=== PATIENT | female | born 1955 | race African-American/Black ===

== ENCOUNTER 2022-10-10 13:30 | Emergency (ER) | payer OTHER, SELFPAY ==
--- NOTE | ~2022-10-10 | XR_ITS ---
XR foot LT min 3V 10/10/2022 14:17 Indication: Left foot pain after fall Procedure: 4 views left foot Comparison: No prior studies for comparison. Findings: There is a oblique extra-articular fracture of the fifth metatarsal with dorsal medial disp lacement. Osteopenia. Lisfranc joint intact no other fracture is identified. 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 There is a degenerative calcaneal enthesophyte at the plantar surface. Impression: 1: Displaced extra-articular fracture left fifth metatarsal. Reviewed, dictated and finalized at location A. Impression: 1: Displaced extra-articular fracture left fifth metatarsal.
[2022-10-10 13:58] VITALS: BP 105/70; PULSE 80; RESP 18; TEMP 36.4; O2SAT 100
[2022-10-10 14:02] VITALS: BP 105/70; PULSE 80; RESP 18; TEMP 36.4; O2SAT 100
--- NOTE | 2022-10-10 14:23 | ED.LOWEXIN ---
HPI - Extremity Injury (Lower) General Chief Complaint: Extremity Injury, Lower Stated Complaint: lower extremity injury/fall Time Seen by Provider: 10/10/22 13:37 Source: patient and family (daughter ) Mode of arrival: wheelchair Limitations: no limitations History of Present Illness HPI Narrative: 67-year-old female presents [facility] accompanied by her daughter for complaints of pain and swelling to the lateral aspect of her left foot since last night. Patient reports that she is from [place], staying with her daughter when she tripped and fell down 2 steps injuring her left foot. Patient denies loss of conscious, headache, dizziness, blurred vision, nausea or vomiting. Patient reports that she takes prescribed tramadol. Patient reports that she might have hit her head during fall. Patient denies loss of conscious, headache, dizziness or blurred vision. Patient refuses ER evaluation at this time. MD complaint: foot injury Onset (ago): day(s) (1) Injury: Left: foot Severity scale (1-10): 5 Relieving factors: rest Exacerbating factors: weight bearing and movement Context: fall Other symptoms: none Related Data Home Medications Medication Instructions Recorded Confirmed albuterol sulfate 2.5 mg/3 mL mg 10/10/22 (0.083 %) solution for nebulization apixaban 5 mg tablet (Eliquis) mg 10/10/22 budesonide 160 mcg-glycopyr 9 inh inhalation 10/10/22 mcg-formot 4.8 mcg/actuation HFA inhaler (Breztri Aerosphere) folic acid 1 mg tablet 10/10/22 gabapentin 100 mg capsule mg 10/10/22 loratadine 10 mg tablet mg 10/10/22 prednisone 1 mg tablet mg 10/10/22 tramadol 50 mg tablet mg 10/10/22 valsartan 160 mg tablet mg 10/10/22 Allergies Allergy/AdvReac Type Severity Reaction Status Date / Time codeine Allergy Rash Verified 10/10/22 13:59 iodine Allergy Hives Verified 10/10/22 13:59 Penicillins Allergy Swelling Verified 10/10/22 13:59 Review of Systems Constitutional: Constitutional: Denies chills, Denies fatigue, Denies fever(s) and Denies weakness ENT: Denies vertigo and Denies dizziness Cardiovascular: Cardiovascular: Denies chest pain Respiratory: Respiratory: Denies cough, Denies dyspnea and Denies wheezing Gastrointestinal: Gastrointestinal: Denies diarrhea, Denies nausea and Denies vomiting Musculoskeletal: Musculoskeletal: Reports arthralgias and Reports joint swelling Comments: Pain and swelling to the lateral aspect of left foot Integumentary/Breasts: Skin/Breast: Denies rash Neurologic: Denies confusion, Denies vertigo, Denies dizziness, Denies syncope, Denies headache(s), Denies focal weakness, Denies numbness and Denies weakness PMFSH Comments At time of signature, I agree with nursing past medical, surgical, social and family history. There is no relevant family history pertinent to the presenting complaint. Exam Const: General: healthy appearing and no acute distress Nutritional Appearance: well nourished Orientation/consciousness: patient oriented x3 Limitations: no limitations HENMT: Head: normal to inspection Throat: posterior oropharynx normal and uvula midline Eyes: Conjunctivae: conjunctivae normal Pupils: Equal, round and reactive pupils present Direct Ophthalmoscopy: no photophobia Neck: Neck: normal visual inspection Resp: Effort & Inspection: normal respiratory effort and not labored Auscultation: clear to auscultation bilaterally, no crackles, no rales, no rhonchi, no wheezes and breath sounds present Cardio: Rate: regular rate Rhythm: regular rhythm Heart sounds: no murmurs Skin: General skin exam: normal color Rashes: no rashes Wounds: no wounds Neuro: General: patient oriented x3 Cranial nerves: Yes Nystagmus not present Speech: normal speech Extrem: Other: Mild swelling noted to the lateral aspect of left foot. Pulses are within normal limits. No bruising, erythema or open wounds noted Psych: Mental Status: mental status grossly n
--- NOTE | 2022-10-12 17:10 | ED.EXTPRO ---
HPI - Extremity Problem General Chief complaint: Extremity Injury, Lower Stated complaint: lower extremity injury/fall Time Seen by Provider: 10/10/22 13:37 Source: patient and family (daughter ) Mode of arrival: wheelchair Limitations: no limitations History of Present Illness HPI Narrative: Vera is a 67-year-old female patient presenting to the clinic today with complaints of her splint causing her discomfort. She was seen on the 10 of October and was diagnosed with a left 5th displaced metatarsal fracture. Her daughter contacted the orthopedics office and they stated since the patient is not a surgical candidate and is from [place] and is planning to travel back to [place] that she needs to follow up with the orthopedic doctor in [place] for this. Her main concern today is that the splint is causing her pain as it is cutting into her leg Severity scale (1-10): 5 Related Data Home Medications Medication Instructions Recorded Confirmed albuterol sulfate 2.5 mg/3 mL mg 10/10/22 (0.083 %) solution for nebulization apixaban 5 mg tablet (Eliquis) mg 10/10/22 budesonide 160 mcg-glycopyr 9 inh inhalation 10/10/22 mcg-formot 4.8 mcg/actuation HFA inhaler (Breztri Aerosphere) folic acid 1 mg tablet 10/10/22 gabapentin 100 mg capsule mg 10/10/22 loratadine 10 mg tablet mg 10/10/22 prednisone 1 mg tablet mg 10/10/22 tramadol 50 mg tablet mg 10/10/22 valsartan 160 mg tablet mg 10/10/22 Allergies Allergy/AdvReac Type Severity Reaction Status Date / Time codeine Allergy Rash Verified 10/10/22 13:59 iodine Allergy Hives Verified 10/10/22 13:59 Penicillins Allergy Swelling Verified 10/10/22 13:59 Review of Systems Review of Systems: Pertinent positives per HPI. Patient denies any fever, chills, rash, headache, visual changes, dizziness, cough, runny nose, sore throat, shortness of breath, chest pain, palpitations, nausea, vomiting, diarrhea, constipation, abdominal pain, or any urinary issues. Exam Narrative: General: Well-developed, well nourished, in no apparent distress Head: Normocephalic, atraumatic. Cardio: Regular rate and rhythm, s1 and s2 normal, no murmur appreciated. Resp: Clear to auscultation bilaterally, no rhonchi, rales, wheezing or rubs. Musculoskeletal: No deformity, non-tender to palpation, grossly normal range of motion, muscle strength strong and equal, peripheral pulse strong, no edema, no cyanosis, normal gait and station Course Vital Signs Vital signs: Vital Signs Temperature 36.4 C 10/10/22 13:58 Pulse Rate 80 10/10/22 13:58 Respiratory Rate 18 10/10/22 13:58 Blood Pressure 105/70 10/10/22 13:58 Pulse Oximetry 100 10/10/22 13:58 Oxygen Delivery Room Air 10/10/22 13:58 Temperature 36.4 C 10/10/22 14:02 Pulse Rate 80 10/10/22 14:02 Respiratory Rate 18 10/10/22 14:02 Blood Pressure 105/70 10/10/22 14:02 Pulse Oximetry 100 10/10/22 14:02 Oxygen Delivery Room Air 10/10/22 14:02 MDM - Extremity (Nontraumatic) MDM Narrative Medical decision making narrative: At the time of visit patient is resting on the exam table. OCL splint was removed and assessment was completed on the left leg. Patient has a strong pedal pulse with swelling. Will reapply a new splint to with more soft testing supplies. Supportive measures were discussed with the patient and the daughter they voiced understanding discharge instructions agrees to treatment plan. Differential Diagnosis Differential diagnosis: Likely other (Status post fall with closed displaced left 5th metatarsal fracture, splint re-application,) Discharge Plan Discharge Clinical Impression: Displaced fracture of fifth metatarsal bone, left foot, initial encounter for closed fracture Patient Disposition: Home, Self-Care Condition: Stable Instructions: Foot Fracture in Adults (ED) Additional Instructions: Follow-up with orthopedics -- Dr Guy Keep OCL splint in place
--- NOTE | 2022-10-12 17:15 | ED.LOWEXIN ---
HPI - Extremity Injury (Lower) General Chief Complaint: Extremity Injury, Lower Stated Complaint: lower extremity injury/fall Time Seen by Provider: 10/10/22 13:37 Source: patient and family (daughter ) Mode of arrival: wheelchair Limitations: no limitations History of Present Illness Relieving factors: rest Exacerbating factors: weight bearing and movement Context: fall Related Data Home Medications Medication Instructions Recorded Confirmed albuterol sulfate 2.5 mg/3 mL mg 10/10/22 (0.083 %) solution for nebulization apixaban 5 mg tablet (Eliquis) mg 10/10/22 budesonide 160 mcg-glycopyr 9 inh inhalation 10/10/22 mcg-formot 4.8 mcg/actuation HFA inhaler (Breztri [employer]phere) folic acid 1 mg tablet 10/10/22 gabapentin 100 mg capsule mg 10/10/22 loratadine 10 mg tablet mg 10/10/22 prednisone 1 mg tablet mg 10/10/22 tramadol 50 mg tablet mg 10/10/22 valsartan 160 mg tablet mg 10/10/22 Allergies Allergy/AdvReac Type Severity Reaction Status Date / Time codeine Allergy Rash Verified 10/10/22 13:59 iodine Allergy Hives Verified 10/10/22 13:59 Penicillins Allergy Swelling Verified 10/10/22 13:59 Course Vital Signs Vital signs: Vital Signs Temperature 36.4 C 10/10/22 13:58 Pulse Rate 80 10/10/22 13:58 Respiratory Rate 18 10/10/22 13:58 Blood Pressure 105/70 10/10/22 13:58 Pulse Oximetry 100 10/10/22 13:58 Oxygen Delivery Room Air 10/10/22 13:58 Temperature 36.4 C 10/10/22 14:02 Pulse Rate 80 10/10/22 14:02 Respiratory Rate 18 10/10/22 14:02 Blood Pressure 105/70 10/10/22 14:02 Pulse Oximetry 100 10/10/22 14:02 Oxygen Delivery Room Air 10/10/22 14:02 Discharge Plan Discharge Clinical Impression: Displaced fracture of fifth metatarsal bone, left foot, initial encounter for closed fracture Patient Disposition: Home, Self-Care Condition: Stable Instructions: Foot Fracture in Adults (ED) Additional Instructions: Follow-up with orthopedics -- Dr Guy Keep OCL splint in place Elevate left foot apply cool compresses to area of pain Remain nonweightbearing as much as possible Continue to take tramadol as prescribed Proceed to the emergency room if symptoms worsen Monitor symptoms very close and proceed to the emergency room if you develop headache, dizziness, blurred vision, nausea, vomiting or neurological changes Patient Language: Angolan Prescriptions: No Action albuterol sulfate 2.5 mg /3 mL (0.083 %) solution for nebulization tramadol 50 mg tablet prednisone 1 mg tablet folic acid 1 mg tablet gabapentin 100 mg capsule loratadine 10 mg tablet valsartan 160 mg tablet Eliquis 5 mg tablet Breztri Aerosphere 160-9-4.8 mcg/actuation HFA aerosol inhaler INHALATION Follow-up/Referrals: Sergey Sosa [Other] Eric Guy MD [Physician] - Time of Disposition: 14:56
== END 2022-10-10 15:10 | disposition home or self-care (01) ==
PROVIDERS: Emergency Provider Nurse Practitioner Family
DX: S92.352A Displaced fracture of fifth metatarsal bone, left foot, initial encounter for closed fracture (principal); W10.9XXA Fall (on) (from) unspecified stairs and steps, initial encounter
CPT/HCPCS: 29515; 73630; 99204; G0463

== ENCOUNTER 2022-10-12 17:07 | Emergency (ER) | payer OTHER, SELFPAY ==
--- NOTE | 2022-10-12 17:18 | ED.LOWEXIN ---
HPI - Extremity Injury (Lower) General Chief Complaint: Extremity Injury, Lower Stated Complaint: Lt Foot Pain Time Seen by Provider: 10/12/22 17:09 Source: patient and family Mode of arrival: ambulatory Limitations: no limitations History of Present Illness HPI Narrative: Vrea is a 67-year-old female patient presenting to the clinic today with complaints of her splint causing her discomfort. She was seen on the 10 of October and was diagnosed with a left 5th displaced metatarsal fracture. Her daughter contacted the orthopedics office and they stated since the patient is not a surgical candidate and is from [place] and is planning to travel back to [place] that she needs to follow up with the orthopedic doctor in [place] for this. Her main concern today is that the splint is causing her pain as it is cutting into her leg Related Data Home Medications Medication Instructions Recorded Confirmed albuterol sulfate 2.5 mg/3 mL 2.5 mg DIRECTED 10/10/22 10/12/22 (0.083 %) solution for nebulization apixaban 5 mg tablet (Eliquis) 5 mg DIRECTED 10/10/22 10/12/22 budesonide 160 mcg-glycopyr 9 1 inh inhalation DIRECTED 10/10/22 10/12/22 mcg-formot 4.8 mcg/actuation HFA inhaler (Breztri [employer]) folic acid 1 mg tablet 1 mg DIRECTED 10/10/22 10/12/22 gabapentin 100 mg capsule 100 mg DIRECTED 10/10/22 10/12/22 loratadine 10 mg tablet 10 mg DIRECTED 10/10/22 10/12/22 prednisone 1 mg tablet 1 mg DIRECTED 10/10/22 10/12/22 tramadol 50 mg tablet 50 mg DIRECTED 10/10/22 10/12/22 valsartan 160 mg tablet 160 mg DIRECTED 10/10/22 10/12/22 Allergies Allergy/AdvReac Type Severity Reaction Status Date / Time codeine Allergy Rash Verified 10/10/22 13:59 iodine Allergy Hives Verified 10/10/22 13:59 Penicillins Allergy Swelling Verified 10/10/22 13:59 Review of Systems Review of Systems: Pertinent positives per HPI. Patient denies any fever, chills, rash, headache, visual changes, dizziness, cough, runny nose, sore throat, shortness of breath, chest pain, palpitations, nausea, vomiting, diarrhea, constipation, abdominal pain, or any urinary issues. PMFSH Comments At the time of my signature, I reviewed and agree with the nursing past medical, surgical, social, and family history. There is no relevant family history pertinent to the patient complaint. Exam Narrative: General: Well-developed, well nourished, in no apparent distress Head: Normocephalic, atraumatic. Cardio: Regular rate and rhythm, s1 and s2 normal, no murmur appreciated. Resp: Clear to auscultation bilaterally, no rhonchi, rales, wheezing or rubs. Musculoskeletal: No deformity, mild redness to the left medial anterior leg due to splint rubbing, tender to palpation over the left 5th metatarsal, nonpitting edema to the top of the left foot, grossly normal range of motion, muscle strength strong and equal, pedal pulse strong, no cyanosis, walking with a cane Course Course Emergency Course: Portions of this record may have been created with voice recognition software. Level of Care: Express Care Visit Vital Signs Vital signs: Vital signs reviewed MDM - Extremity Injury (Lower) MDM Narrative Medical decision making narrative: At the time of visit patient is resting comfortably on the exam table. OCL splint was removed and new splint was applied. Extra soft casting was applied to prevent the fiberglass splint from rubbing on her skin. Sensation circulation and motion are within normal limits after new splint was applied capillary refills less than 2 seconds. Pedal pulse strong. Supportive measures were discussed with the patient she voiced understanding discharge instructions agrees to treatment plan. Differential Diagnosis Differential diagnosis: Likely other (Status post fall with left 5th metatarsal fracture) Discharge Plan Discharge Clinical Impression: Fracture of fifth metatarsal bone of left foot Qualifiers: Encounter
[2022-10-12 17:20] VITALS: BP 116/70; PULSE 100; RESP 17; TEMP 36.3; O2SAT 95
== END 2022-10-12 17:58 | disposition home or self-care (01) ==
PROVIDERS: Emergency Provider Nurse Practitioner Family
DX: S92.352A Displaced fracture of fifth metatarsal bone, left foot, initial encounter for closed fracture (principal); X58.XXXA Exposure to other specified factors, initial encounter; Z46.89 Encounter for fitting and adjustment of other specified devices
CPT/HCPCS: 99212; 99214; G0463